=== PATIENT | female | born 1970 | race Caucasian/White ===

== ENCOUNTER 2018-02-18 06:52 | Day surgery (SDC) | payer OTHER ==
[~2018-02-18] VITALS: Ht 165.1 cm; Wt 61.4 kg
[~2018-02-18 06:52] MED LIST: SODIUM CHLORIDE 0.9% 1,000 ML IV ONE
[2018-02-18] MEDS ORDERED: LIDOCAINE HCL 4% 50 ML SOLUTION TP ONE (06:53)
[2018-02-18] MEDS ORDERED: ALBUTEROL SULFATE 2.5 MG/0.5 ML NEB SOLUTION NEB ONE (06:53)
[2018-02-18] MEDS ORDERED: BENZOCAINE 20% 50 MCG/SPRAY 57 GM TP ONE (06:53)
[2018-02-18] MEDS ORDERED: LIDOCAINE HCL 2% 30 ML JELLY TP ONE (06:53)
[2018-02-18] MEDS ORDERED: SODIUM CHLORIDE 0.9% 1,000 ML IV ONE (07:30)
[2018-02-18] MEDS ORDERED: MIDAZOLAM HCL 2 MG/2 ML VIAL ONE (07:57)
[2018-02-18] MEDS ORDERED: FentaNYL CITRATE-PF 100 MCG/2 ML VIAL ONE (07:57)
[2018-02-18] MEDS ORDERED: MethylPREDNISolone SOD SUCC 125 MG/2 ML VIAL IVP ONE (08:45)
[2018-02-18] MEDS ORDERED: MethylPREDNISolone SOD SUCC 125 MG/2 ML VIAL ONE (09:00)
[2018-02-18] MEDS ORDERED: OXYGEN THERAPY IH SCH (20:00)
== END 2018-02-18 10:15 | disposition home or self-care (01) ==
LOC: SURGERY 06:52
PROVIDERS: ATTEND Internal Medicine Critical Care Medicine
DX: J98.4 Other disorders of lung (principal); B37.0 Candidal stomatitis; F17.210 Nicotine dependence, cigarettes, uncomplicated; J44.9 Chronic obstructive pulmonary disease, unspecified; M79.7 Fibromyalgia; F33.8 Other recurrent depressive disorders; F15.21 Other stimulant dependence, in remission; M19.90 Unspecified osteoarthritis, unspecified site; Z90.12 Acquired absence of left breast and nipple; Z98.51 Tubal ligation status; Z88.0 Allergy status to penicillin; Z88.1 Allergy status to other antibiotic agents; Z79.82 Long term (current) use of aspirin; Z79.891 Long term (current) use of opiate analgesic; Z79.899 Other long term (current) drug therapy; Z98.890 Other specified postprocedural states
CPT/HCPCS: 31623; 31624; 71045; 87015; 87070; 87147; 87205; 87206; 87220; 88108; 88312; 94640; J2250; J2930; J3010; J7030